=== PATIENT | male | born 1940 | race Hispanic/Latino ===

== ENCOUNTER 2021-04-10 06:33 | Day surgery (SDC) | payer MEDICARE ==
[2021-04-10] MEDS ORDERED: ASPIRIN EC 325 MG TAB PO SCH (07:30)
[2021-04-10] MEDS ORDERED: SODIUM CHLORIDE 0.9% 500 ML 500 ML IV SCH (08:00)
[2021-04-10] MEDS ORDERED: HEPARIN 10,000 UNITS/10 ML VIAL ONE (08:38)
[2021-04-10] MEDS ORDERED: HEPARIN/NS 5000 UNIT/500ML 1,000 ML IR ONE (08:38)
[2021-04-10] MEDS ORDERED: VERAPAMIL 5 MG/2 ML INJ ONE (08:38)
[2021-04-10] MEDS ORDERED: NITROGLYCERIN SYRINGE 3 ML ONE (08:39)
--- NOTE | 2021-04-10 09:01 | Electrocardiograph Report ---
[facility] Test Date: 2021-04-10 Test Time: 07:14:08 Pat Name: DINAH CASTELLANO Department: Room: Gender: M Ux Lead: MARE : 1940 Requested By: ERIC CARRILLO Order Number: [id number] Reading MD: Eric Carrillo Measurements Intervals Jackson Rate: 68 P: 86 GA: 316 QRS: -19 QRSD: 208 T: 164 QT: 513 QTc: 547 Interpretive Statements Sinus rhythm Prolonged GA interval Left bundle branch block ST elevation secondary to IVCD No previous ECG available for comparison Electronically Signed On 04-10-2021 9:01:16 EST by Eric Carrillo
[2021-04-10] MEDS ORDERED: MIDAZOLAM 2 MG/2 ML INJ ONE (09:04)
[2021-04-10] MEDS ORDERED: fentaNYL 100 MCG/2 ML INJ ONE (09:04)
[2021-04-10] MEDS: LIDOCAINE (2%) 20 MG/1 ML VIAL 20 ML MDV INFILTRATI ONE ×2 (09:10→09:12)
[2021-04-10] MEDS ORDERED: hydrALAZINE 20 MG/1 ML INJ ONE (09:15)
--- NOTE | 2021-04-10 09:31 | Short Stay Summary ---
Short Stay Documentation Date of service: 04/10/21 - History H&P: obtained from office - Allergies and Medications Current Medications: Allergies No Known Allergies Allergy (Verified 04/10/21 07:05) Home Medications Medication Instructions Recorded Confirmed Last Taken Type Fenofibrate Nanocrystallized 145 mg PO DAILY 04/10/21 04/10/21 04/09/21 History [Fenofibrate] 145 mg Furosemide [Lasix TAB] 20 mg PO DAILY 04/10/21 04/10/21 04/09/21 History 20 mg Potassium Chloride [K-Dur] 10 mg PO DAILY 04/10/21 04/10/21 04/09/21 History 10 meq Spironolactone [Aldactone] 25 mg PO DAILY 04/10/21 04/10/21 04/09/21 History 25 mg Valsartan [Diovan] 160 mg PO BID 04/10/21 04/10/21 04/10/21 05:00 History 160 mg amLODIPine 2.5 mg PO DAILY 04/10/21 04/10/21 04/09/21 History 2.5mg carvediloL [Coreg] 12.5 mg PO BID 04/10/21 04/10/21 04/09/21 History 12.5mg Active Medications Aspirin (Aspirin Ec 325 Mg Tab) 325 mg PO ONCE@0730 JOSE Stop: 04/10/21 19:00 Last Admin: 04/10/21 07:34 Dose: 325 mg Sodium Chloride (Nacl 0.9% 500 Ml) 500 mls @ 50 mls/hr IV DIRECT JOSE Stop: 04/10/21 17:59 Last Admin: 04/10/21 08:21 Dose: 50 mls/hr - Brief post op/procedure progress note Date of procedure: 04/10/21 Pre-op diagnosis: cardiomyopathy Post-op diagnosis: same Procedure: see report Anesthesia: local Estimated blood loss: minimal Pathology: none - Disposition Condition at discharge: Good Disposition: 01 HOME / SELF CARE / HOMELESS - Discharge Diagnoses (1) LBBB (left bundle branch block) Status: Chronic (2) Cardiomyopathy Status: Chronic Qualifiers: Cardiomyopathy type: dilated Qualified Code(s): I42.0 - Dilated cardiomyopathy (3) Hypertension Status: Chronic Qualifiers: Hypertension type: primary hypertension Qualified Code(s): I10 - Essential (primary) hypertension (4) Hyperlipemia, mixed Status: Chronic (5) Systolic heart failure Status: Chronic Qualifiers: Heart failure chronicity: chronic Qualified Code(s): I50.22 - Chronic systolic (congestive) heart failure Short Stay Discharge Plan Activity: advance as tolerated Diet: low fat, low cholesterol, low salt Wound: keep clean and dry Follow up with: SHINE ROWLEY MD [Primary Care Provider] - 7 Days
--- NOTE | 2021-04-10 09:46 | Cardiac Catherization Report ---
DATE OF SERVICE: 04/10/2021 LEFT HEART CATHETERIZATION ORDERING PHYSICIAN: Dr. Carrillo. CLINICAL INFORMATION: An 80-year-old male with hypertension with severe LV dysfunction with left bundle branch block, is here for left heart catheterization for ischemic evaluation for LV dysfunction done with moderate sedation started 9:10, finished at 9:20, 10 minutes of moderate sedation. DESCRIPTION OF PROCEDURE: Left heart catheterization performed via the right radial artery, sterile technique and local anesthesia. A 6-Polish radial sheath inserted. Left system engaged with JL3.5 catheter. Left main is large and patent, trifurcates into large LAD that is patent. Diagonal 1 is a medium to large caliber patent. Diagonal 2 is a medium caliber was patent. The ramus is a large caliber vessel, ostial 50%. Circumflex, large caliber vessel, patent. OM1, OM2 are large caliber was patent. RCA engaged with JR4 is a large, dominant vessel, patent from proximally and distally. PDA and PLV are medium caliber is patent. LV gram done in MAL[place]IAN and MOORE shows severe LV dysfunction, EF 20-25%. LVEDP at 21 mmHg, LV is 175. Aortic is 175/72. No gradient across the aortic valve on pullback. 5-Polish catheters all taken over a guidewire. A 6-Polish radial sheath was discontinued. Radial band applied. No hematoma, no bleeding. SUMMARY: Left main patent. Diagonal 1, diagonal 2 patent ramus, ostial 50%, circumflex patent OM1, OM2 patent, RCA patent. These are all large epicardial vessels patent with severe LV dysfunction, EF 25%. Nonischemic cardiomyopathy. The patient was referred for a [employer] Bi-V AICD and discussed this with the patient and the patient's family in detail. TID: [id number] RECEIPT: [id number] [facility]
[2021-04-10] MEDS ORDERED: HYDROcodone/ACETAMINOPHEN 5-325 MG TAB PO PRN (10:00)
[2021-04-10] MEDS ORDERED: traMADol 50 MG TAB PO PRN (10:00)
[2021-04-10 13:32] VITALS: BP 138/54
== END 2021-04-10 14:04 | disposition home or self-care (01) ==
LOC: CATHLABREC 06:33
PROVIDERS: ATTEND Internal Medicine
DX: R94.31 Abnormal electrocardiogram [ECG] [EKG] (principal); R06.09 Other forms of dyspnea; I35.1 Nonrheumatic aortic (valve) insufficiency; I42.0 Dilated cardiomyopathy; E78.00 Pure hypercholesterolemia, unspecified; I11.0 Hypertensive heart disease with heart failure; I50.20 Unspecified systolic (congestive) heart failure; M19.90 Unspecified osteoarthritis, unspecified site; Z79.899 Other long term (current) drug therapy; Z98.890 Other specified postprocedural states
CPT/HCPCS: 82962; 93005; 93010; 93458; 99156; C1894; J0360; J1644; J1815; J2250; J3010; J3490; J7040; Q9967